=== PATIENT | female | born 1975 | race Caucasian/White ===

== ENCOUNTER → 2016-11-01 | Outpatient (CLI) | payer OTHER ==
[2016-10-09 13:37] VITALS: BP 151/87
[~2016-11-01] MED LIST: ACET-704 PO; AMOX1TAB61 PO; CARV3.122 PO; CYAN10005 PO; DEXA4TAB PO; DULO30CA2 PO; DULO60CA6 PO; GABA-585 PO; GABA-586 PO; HYDR-2762 PO; HYDR40TA PO; LOSA1TAB16 PO; LOSA25TA4 PO; METH-37 PO; METH-38 PO; ONDA8TAB9 PO; OXYC-323 PO; OXYC1TAB7 PO; PREG150C PO; PROG100C7 PO; TIZA4TAB PO; TRAM100T PO
--- NOTE | 2016-11-01 14:52 | RAD ---
Standing lateral extension and flexion views of the lumbar spine Comparison: February 23, 2004. Indications: Low back pain for 2 months. Low back pain radiates to the left leg. Findings: No compression fracture or discitis or osteolytic process is seen. No anterolisthesis is evident. No abnormal movement is seen between flexion and extension. There is moderate degenerative disc space narrowing and mild degenerative endplate spurring at L5-S1 which has progressed from the prior study. There is mild degenerative endplate spurring and disc space narrowing throughout the rest of the lumbar spine with mild progression at L4-5. IMPRESSION: Progressive degenerative disc space disease of L4-5 and L5-S1. No anterolisthesis or abnormal movement is seen between flexion and extension.
== END | disposition home or self-care (01) ==
LOC: RAD 11:46
PROVIDERS: ATTEND Neurological Surgery
DX: M51.36 Other intervertebral disc degeneration, lumbar region (principal)
CPT/HCPCS: 72120

== ENCOUNTER → 2016-12-13 | Outpatient (CLI) | payer OTHER ==
[2016-10-09 13:37] VITALS: BP 151/87
--- NOTE | 2016-12-13 13:09 | KCIC ---
PROCEDURE MRI lumbar spine without contrast HISTORY Midline back pain, fall 3 weeks ago and also 3 days ago, left leg pain, previous surgery July 2016 TECHNIQUE Multiplanar, multi sequential non contrast MR imaging was performed of the lumbar spine. Contrast: None COMPARISON 09/26/2016 FINDINGS Lumbar vertebral body stature is maintained. There is again negligible posterior subluxation L5 relative to S1, L4 relative to L5, L3 relative to L4. There is no new new significant marrow edema. There is again nonspecific edema of the posterior subcutaneous fat of the lower back. There is again anterior annular tear at L4-5, posterior annular tear L5-S1. Conus terminates at L2. There is again mild degenerative disc disease L3-4 to L5-S1. L3-4: Spinal canal and neural foramina are adequate. There is mild facet hypertrophic change. L4-5: Spinal canal and neural foramina remain adequate. There is mild facet hypertrophic change. L5-S1: There is again left laminectomy defect. There is again moderate facet hypertrophic change bilaterally. There is similar signal alteration in the anterior left lateral recess, near descending left S1 nerve root without new significant displacement. There is similar moderate narrowing of the left neural foramen by disc osteophyte complex and facet hypertrophic change, mild narrowing on the right. IMPRESSION 1. Findings are similar compared with the September 2016 exam. There is again some signal alteration of the anterior left lateral recess at L5-S1 at which there has been left laminectomy, on previous post contrast exam mostly due to enhancing fibrosis with tiny residual focus of fluid or disc fragment. There is similar moderate narrowing of the left L5-S1 neural foramen. 2. There is again negligible posterior subluxation L5 relative to S1, L4 relative to L5, L3 relative to L4. 3. There is again mild degenerative disc disease L3-4 to L5-S1. Electronically signed by: Anuj Woodward MD (Dec 13, 2016 13:09:01)
== END | disposition home or self-care (01) ==
LOC: KCIC MRI 11:54
PROVIDERS: ATTEND Neurological Surgery
DX: M51.36 Other intervertebral disc degeneration, lumbar region (principal)
CPT/HCPCS: 72148

== ENCOUNTER 2016-12-19 22:26 | Emergency (ER) | payer OTHER ==
[~2016-12-19] VITALS: Ht 177.8 cm; Wt 119.7 kg
[2016-12-19] MEDS ORDERED: IV NORMAL SALINE 1000ML BAG 1,000 ML IV SCH (23:15)
[2016-12-19] MEDS ORDERED: HALOPERIDOL LACT 5 MG/ML VIAL. IVP ONE (23:15)
[2016-12-19 23:17] LABS: BASO # 0.2 x10^3/uL (0.0-0.2); BASO % 1 % (0-3); EOS % 1 % (0-3); HEMATOCRIT 42.2 % (36.0-47.0); HEMOGLOBIN 13.8 g/dL (12.0-15.5); LYMPH # 2.9 x10^3/uL (1.0-4.8); LYMPH % 13 % (24-48); MEAN CORPUSCULAR HEMOGLOBIN 29 pg (25-35); MEAN CORPUSCULAR HGB CONC 33 g/dL (31-37); MEAN CORPUSCULAR VOLUME 88 fL (79-100); MONO % 6 % (0-9); NEUT % 80 % (31-73); PLATELET COUNT 329 x10^3/uL (140-400); RED BLOOD COUNT 4.79 x10^6/uL (3.50-5.40); RED CELL DISTRIBUTION WIDTH 13.5 % (11.5-14.5); WHITE BLOOD COUNT 22.2 x10^3/uL (4.0-11.0)
[2016-12-19 23:18] LABS: BILIRUBIN,URINE NEGATIVE (NEG); GLUCOSE,URINE NEGATIVE (NEG); NITRITE,URINE NEGATIVE (NEG); PH,URINE 6.5; PROTEIN,URINE NEGATIVE (NEG-TRACE); UROBILINOGEN,URINE 0.2 mg/dL (0.2 mg/dL)
[2016-12-19 23:23] LABS: NEG OBC UR NEG; POS OBC UR POS
[2016-12-19 23:26] LABS: BACTERIA,URINE FEW /HPF (0-FEW); RBC,URINE OCC /HPF (0-2); SQUAMOUS EPITHELIAL CELL,UR MOD /LPF
[2016-12-19 23:28] LABS: CREATININE 0.8 mg/dL (0.6-1.0); GFR 79.4; POTASSIUM 3.8 mmol/L (3.5-5.1)
[2016-12-19 23:34] LABS: ALBUMIN 3.2 g/dL (3.4-5.0); ALBUMIN/GLOBULIN RATIO 0.8 (1.0-1.7); TOTAL BILIRUBIN 0.6 mg/dL (0.2-1.0); TOTAL PROTEIN 7.3 g/dL (6.4-8.2)
[2016-12-19 23:35] LABS: % EOS 2 % (0-5); PLT ESTIMATE ADEQUATE (ADEQUATE)
[2016-12-20 00:07] VITALS: BP 141/83
--- NOTE | 2016-12-20 00:19 | ED.ADGEN ---
Past Medical History Past Medical History: Fibromyalgia, Hypertension, Migraines, Other Additional Past Medical Histor: CYCLIC VOMITING, CHRONIC PAIN, headaches Past Surgical History: Hysterectomy, Tonsillectomy, Tubal ligation Alcohol Use: None Drug Use: Opiates Adult General Chief Complaint Chief Complaint: NAUSEA/VOMITING/DIARRHA HPI HPI Patient is a 41 year old woman, history of cyclic vomiting syndrome, fibromyalgia, hypertension, who presents the emergency department with a complaint of cyclic vomiting. Patient states that she began experiencing persistent episodes of emesis beginning this morning, consistent with her previous episodes. Denies any abdominal pain, any sick contacts or exposures, states she's also sprinting a mild headache which is consistent with previous headaches that she's experienced during these episodes. No injuries, no ingestions, no exposures, no weakness, numbness or tingling. No diarrhea. Last bowel movement was this morning and was normal. Review of Systems Review of Systems Constitutional: Denies fever or chills. [] Eyes: Denies change in visual acuity. [] HENT: Denies nasal congestion or sore throat. [] Respiratory: Denies cough or shortness of breath. [] Cardiovascular: Denies chest pain or edema. [] GI: Denies abdominal pain, complaining of nausea, vomiting, bloody stools or diarrhea. : Denies dysuria. [] Musculoskeletal: Denies back pain or joint pain. [] Integument: Denies rash. [] Neurologic: Denies focal weakness or sensory changes. [] Headache. Endocrine: Denies polyuria or polydipsia. [] Lymphatic: Denies swollen glands. [] Psychiatric: Denies depression or anxiety. [] Current Medications Current Medications Current Medications Medications (Trade) Dose Ordered Sig/Bruno Start Time Stop Time Status Last Admin Dose Admin Haloperidol Lactate (Haldol) 5 mg 1X ONCE 12/19/16 23:15 12/19/16 23:16 DC 12/19/16 23:20 5 MG Sodium Chloride (Iv Sodium Chloride 0.9% 1000ml Bag) 1,000 ml @ 1,000 mls/hr Q1H 12/19/16 23:15 12/20/16 00:14 DC 12/19/16 23:20 1,000 MLS/HR Allergies Allergies Allergies Coded Allergies Type Severity Reaction Last Updated Verified gabapentin Adverse Reaction Intermediate WILD DREAMS 08/07/16 Yes Physical Exam Physical Exam Constitutional: Well developed, well nourished, no acute distress, non-toxic appearance. [] HENT: Normocephalic, atraumatic, bilateral external ears normal, oropharynx moist, no oral exudates, nose normal. [] Eyes: PERRLA, EOMI, conjunctiva normal, no discharge. [] Neck: Normal range of motion, no tenderness, supple, no stridor. [] Cardiovascular:Heart rate regular rhythm, no murmur , S1, S2, no rubs or gallops. [][] Lungs & Thorax: Bilateral breath sounds clear to auscultation, Abdomen: Bowel sounds normal, soft, no tenderness, no masses, no pulsatile masses. No rebound, rigidity or guarding. [] Skin: Warm, dry, no erythema, no rash. [] Back: No tenderness, no CVA tenderness. [] Extremities: No tenderness, no cyanosis, no clubbing, ROM intact, no edema. [] Neurologic: Alert and oriented X 3, normal motor function, normal sensory function, no focal deficits noted. [] Psychologic: Affect normal, judgement normal, mood normal. [] Current Patient Data Vital Signs Vital Signs Date Time Temp Pulse Resp B/P Pulse Ox O2 Delivery O2 Flow Rate FiO2 12/20/16 00:07 72 141/83 94 Room Air 12/19/16 22:35 97.6 20 97.6 Lab Values Laboratory Tests Test 12/19/16 22:35 12/19/16 22:45 Urine Collection Type Unknown Urine Color Yellow Urine Clarity Clear Urine pH 6.5 Urine Specific [place] 1.020 Urine Protein Negativemg/dL (NEG-TRACE) Urine Glucose (UA) Negativemg/dL (NEG) Urine Ketones (Stick) Negativemg/dL (NEG) Urine Blood Negative (NEG) Urine Nitrite Negative (NEG) Urine Bilirubin Negative (NEG) Urine Urobilinogen Dipstick 0.2mg/dL (0.2 mg/dL) Urine Leukocyte Esterase Moderate (NEG) Urine RBC Occ/HPF (0-2) Urine WBC 5-10/HPF (0-4) Urine Squamous Epithelial Cells Mod/LPF Urine Bacteria Few/HPF (0-FEW) Urine Test Negative (NEG) White Blood Count 22.2x10^3/uL (4.0-11.0) H Red Blood Count 4.79x10^6/uL (3.50-5.40) Hemoglobin 13.8g/dL (12.0-15.5) Hematocrit 42.2% (36.0-47.0) Mean Corpuscular Volume 88fL (79-100) Mean Corpuscular Hemoglobin 29pg (25-35) Mean Corpuscular Hemoglobin Concent 33g/dL (31-37) Red Cell Distribution Width 13.5% (11.5-14.5) Platelet Count 329x10^3/uL (140-400) Neutrophils (%) (Auto) 80% (31-73) H Lymphocytes (%) (Auto) 13% (24-48) L Monocytes (%) (Auto) 6% (0-9) Eosinophils (%) (Auto) 1% (0-3) Basophils (%) (Auto) 1% (0-3) Neutrophils # (Auto) 17.7x10^3uL (1.8-7.7) H Lymphocytes # (Auto) 2.9x10^3/uL (1.0-4.8) Monocytes # (Auto) 1.3x10^3/uL (0.0-1.1) H Eosinophils # (Auto) 0.2x10^3/uL (0.0-0.7) Basophils # (Auto) 0.2x10^3/uL (0.0-0.2) Segmented Neutrophils % 77% (35-66) H Band Neutrophils % 4% (0-9) Lymphocytes % 15% (24-48) L Monocytes % 2% (0-10) Eosinophils % 2% (0-5) Platelet Estimate Adequate (ADEQUATE) Sodium Level 139mmol/L (136-145) Potassium Level 3.8mmol/L (3.5-5.1) Chloride Level 102mmol/L (98-107) Carbon Dioxide Level 27mmol/L (21-32) Anion Gap 10 (6-14) Blood Urea Nitrogen 16mg/dL (7-20) Creatinine 0.8mg/dL (0.6-1.0) Estimated GFR (Cockcroft-Gault) 79.4 BUN/Creatinine Ratio 20 (6-20) Glucose Level 133mg/dL (70-99) H Calcium Level 9.0mg/dL (8.5-10.1) Total Bilirubin 0.6mg/dL (0.2-1.0) Aspartate Amino Transferase (AST) 14U/L (15-37) L Alanine Aminotransferase (ALT) 44U/L (14-59) Alkaline Phosphatase 74U/L (46-116) Total Protein 7.3g/dL (6.4-8.2) Albumin 3.2g/dL (3.4-5.0) L Albumin/Globulin Ratio 0.8 (1.0-1.7) L Lipase 113U/L (73-393) Laboratory Tests 12/19/16 22:45 Laboratory Tests 12/19/16 22:45 EKG EKG EC: Sinus rhythm, heart rate 74 bpm, upright axis, QTC of 452, AK 142, QRS of 80, no ST elevations or depressions, no evidence of acute ST abnormalities. [] Radiology/Procedures Radiology/Procedures No indication. [] Course & Med Decision Making Course & Med Decision Making Pertinent Labs and Imaging studies reviewed. (See chart for details) Patient without any pain on examination, vital signs normal limits, received IV fluids, and Haldol after discussion with patient. On reevaluation, she states that her symptoms are resolved she is feeling much better. Noted to have a leukocytosis of 22, with bands, electrolytes and other labs were studies within normal limits. Patient has no fever, no pain, and no other symptoms consistent with infection, I believe that this is a acute phase reaction secondary to multiple episodes of vomiting. I did discuss this leukocytosis with the patient , and she again denies any additional symptoms or concerning findings. She remained symptom-free in the emergency department after receiving a dose of Haldol. Patient does have her Zofran at home, which she'll continue to use as directed, states she is ready to be discharged home, and will return to the ED for concerning symptoms as discussed. Patient discharged home in stable condition with plan as above. Dragon Disclaimer Dragon Disclaimer This electronic medical record was generated, in whole or in part, using a voice recognition dictation system. Departure Impression: Primary Impression: Cyclical vomiting Disposition: HOME, SELF-CARE Condition: IMPROVED SAQIB AVILES DO Dec 20, 2016 00:19
--- NOTE | 2016-12-20 06:20 | EKG ---
[facility] [address] [place] [address] Test Date: 2016-12-19 Test Time: 23:24:17 Pat Name: ELY MARTINEZ Department: Room: Gender: F [employer]: SEAN : 1975 Requested By: SAQIB AVILES Order Number: [id number] Reading MD: Measurements Intervals [place] Rate: 74 P: -30 OR: 142 QRS: 50 QRSD: 80 T: 38 QT: 402 QTc: 452 Interpretive Statements SINUS RHYTHM NORMAL ECG RI6.01 Unconfirmed report No previous ECG available for comparison
== END 2016-12-20 01:11 | disposition home or self-care (01) ==
LOC: ER 22:26
DX: G43.A0 Cyclical vomiting, in migraine, not intractable (principal); G43.909 Migraine, unspecified, not intractable, without status migrainosus; I10 Essential (primary) hypertension; M79.7 Fibromyalgia; G89.29 Other chronic pain; Z90.710 Acquired absence of both cervix and uterus; Z90.89 Acquired absence of other organs; Z98.51 Tubal ligation status; F11.10 Opioid abuse, uncomplicated; Z88.8 Allergy status to other drugs, medicaments and biological substances
CPT/HCPCS: 36415; 80053; 81001; 81025; 83690; 85007; 85027; 93005; 96361; 96374; 99285; J1630; J7030

== ENCOUNTER → 2017-04-10 | Outpatient (CLI) | payer OTHER ==
[~2017-04-10] MED LIST changes: +PROG100C15 PO; -PROG100C7 PO
--- NOTE | 2017-04-10 11:40 | KCIC ---
Ultrasound Pelvis Indication: Pelvic and abdominal bloating and pain Technique: Multiple real-time grayscale images were obtained over the pelvis transabdominal and transvaginal. Color Doppler imaging was utilized. Findings: The uterus is surgically absent. A small cervical nabothian cyst is noted. The right ovary measures 2.2 x 1.7 x 2.4 cm. No abnormal right ovarian lesions are identified. Normal blood flow is identified. The left ovary measures 1.7 x 1.3 x 1.5 cm. No abnormal left ovarian lesions are identified. Normal blood flow is identified No pelvic free fluid is identified. Impression: Status post hysterectomy. Normal appearance of the bilateral ovaries. Electronically signed by: Wes Reina MD (04/10/2017 11:37 AM)
== END | disposition home or self-care (01) ==
LOC: KCIC US 10:42
PROVIDERS: ATTEND Family Medicine
DX: R14.0 Abdominal distension (gaseous) (principal); R10.2 Pelvic and perineal pain; Z90.710 Acquired absence of both cervix and uterus
CPT/HCPCS: 76830; 76856

== ENCOUNTER 2017-08-28 16:12 | Emergency (ER) | payer OTHER ==
[~2017-08-28] VITALS: Ht 177.8 cm; Wt 123.8 kg
[~2017-08-28 16:12] MED LIST changes: -LOSA1TAB16 PO; +LOSA1TAB19 PO
[2017-08-28 16:20] VITALS: BP 180/100
--- NOTE | 2017-08-28 17:06 | RAD ---
Cervical spine, 3 views, 08/28/2017: History: Neck pain radiating to the left shoulder The vertebral heights and intervertebral disc spaces are well-maintained. There is moderate spurring anteriorly in the mid cervical spine, particularly at the C5-6 disc level. No fracture or dislocation is identified. The neural foramina cannot be evaluated in the absence of oblique views. The prevertebral soft tissues are unremarkable. IMPRESSION: 1. Mild degenerative change. 2. No acute bony abnormality is detected.
[2017-08-28] MEDS ORDERED: METH-37 PO (17:28)
[2017-08-28] MEDS ORDERED: ONDA4TAB10 SL (17:28)
[2017-08-28] MEDS ORDERED: DICL50TA4 PO (17:28)
--- NOTE | 2017-08-28 17:29 | PHYS DOC ---
Past Medical History Past Medical History: Fibromyalgia, Hypertension, Migraines, Other Additional Past Medical Histor: CYCLIC VOMITING, CHRONIC PAIN, headaches Past Surgical History: Hysterectomy, Tonsillectomy, Tubal ligation Alcohol Use: None Drug Use: Opiates Adult General Chief Complaint Chief Complaint: Neck Pain HPI HPI Patient is a 41 year old female with history of hypertension, chronic neck and low back pain, chronic headaches from her neck pain, who presents today complaining of moderate posterior neck pain for the last 1 year. Patient state she follows up the neurosurgeon who has tried to order x-rays twice which were denied by her insurance. She states they've also tried to order MRI which were denied. Patient is requesting x-rays of the cervical sprain. Patient denies any injury. Denies anything exacerbating her pain or relieving the pain. Patient states the pain is sharp and constant. Review of Systems Review of Systems Constitutional: Denies fever or chills [] Musculoskeletal: neck pain-chronic Integument: Denies rash or skin lesions [] Neurologic: Denies headache, focal weakness or sensory changes [] All other systems were reviewed and found to be within normal limits, except as documented in this note. Allergies Allergies Allergies Coded Allergies Type Severity Reaction Last Updated Verified gabapentin Adverse Reaction Intermediate WILD DREAMS 08/07/16 Yes Physical Exam Physical Exam Constitutional: Well developed, well nourished, no acute distress, non-toxic appearance. [] Skin: Warm, dry, no erythema, no rash. [] Back: No tenderness, no CVA tenderness. [] Extremities: Cervical spine with no obvious deformity. Diffuse paraspinal muscle tenderness to posterior cervical spine, slight midline cervical spine tenderness the patient states this is chronic for 1 year. Full range of motion to the cervical spine. Neurologic: Alert and oriented X 3, normal motor function, normal sensory function, no focal deficits noted. [] Psychologic: Affect normal, judgement normal, mood normal. [] Current Patient Data Vital Signs Vital Signs Date Time Temp Pulse Resp B/P (MAP) Pulse Ox O2 Delivery O2 Flow Rate FiO2 08/28/17 16:20 98.1 64 16 180/100 (126) 100 Room Air 98.1 EKG EKG [] Radiology/Procedures Radiology/Procedures [] Course & Med Decision Making Course & Med Decision Making Pertinent Labs and Imaging studies reviewed. (See chart for details) Patient is in the ED with chronic neck pain for 1 year. She is requesting x- rays of her cervical spine because her insurance will not pay for the x-rays as an outpatient. Cervical spine x-rays interpreted by radiologist were negative for any acute findings but noted for arthritis. Patient was discharged with diclofenac Robaxin and Zofran for her chronic nausea and vomiting. She is to follow-up with her neurosurgeon Dr. Peter as soon as possible. Dragon Disclaimer Dragon Disclaimer This electronic medical record was generated, in whole or in part, using a voice recognition dictation system. Departure Departure Impression: Primary Impression: Chronic neck pain Additional Impression: DJD (degenerative joint disease), cervical Disposition: HOME, SELF-CARE Condition: STABLE Referrals: KATHY SAPP MD (PCP) DELROY PETER MD follow up in one week Patient Instructions: Arthritis, Degenerative-Brief Additional Instructions: You were seen for chronic neck pain. Your neck x-ray was negative for any acute findings but noted for arthritis in your neck. Follow-up with as soon as possible. Scripts Methocarbamol (ROBAXIN) 500 Mg Tablet 1 TAB PO TID, #30 TAB Prov: STACEY NETTLES APRN 08/28/17 Ondansetron (ZOFRAN ODT) 4 Mg Tab.rapdis 1 TAB SL Q8HRS, #15 TAB Prov: STACEY NETTLES APRN 08/28/17 Diclofenac Sodium (DICLOFENAC SODIUM) 50 Mg Tablet. 1 TAB PO BID, #30 TAB 0 Refills Prov: STACEY NETTLES APRN 08/28/17 Problem Qualifiers STACEY NETTLES APRN Aug 28, 2017 17:28
== END 2017-08-28 17:34 | disposition home or self-care (01) ==
LOC: ER 16:12
DX: M47.812 Spondylosis without myelopathy or radiculopathy, cervical region (principal); G89.29 Other chronic pain; M54.5 Low back pain; R51 Headache; I10 Essential (primary) hypertension; M79.7 Fibromyalgia; G43.909 Migraine, unspecified, not intractable, without status migrainosus; Z88.8 Allergy status to other drugs, medicaments and biological substances
CPT/HCPCS: 72040; 99284

== ENCOUNTER 2018-08-03 11:36 | Emergency (ER) | payer OTHER ==
[~2018-08-03] VITALS: Ht 177.8 cm; Wt 108.9 kg
[~2018-08-03 11:36] MED LIST changes: +DICL50TA4 PO; -LOSA25TA4 PO; +LOSA25TA5 PO; +ONDA4TAB10 SL; -TRAM100T PO; +TRAM100T30 PO
[2018-08-03] MEDS ORDERED: IV RINGERS,LACTATED 1000ML 1,000 ML IV SCH (12:00)
--- NOTE | 2018-08-03 12:04 | EKG ---
[facility] [address] [place] [address] Test Date: 2018-08-03 Test Time: 11:43:19 Pat Name: ELY MARTINEZ Department: Room: Gender: F [employer]: : 1975 Requested By: PARVEEN PARKS Order Number: [id number] Reading MD: Lupillo Dominguez MD Measurements Intervals [place] Rate: 54 P: -18 MN: 140 QRS: 52 QRSD: 84 T: 48 QT: 438 QTc: 421 Interpretive Statements SINUS RHYTHM Electronically Signed On 08-04-2018 12:24:07 CDT by Lupillo Dominguez MD
--- NOTE | 2018-08-03 12:12 | PHYS DOC ---
Past Medical History Past Medical History: Fibromyalgia, Hypertension, Migraines, Other Additional Past Medical Histor: CYCLIC VOMITING, CHRONIC PAIN, headaches Past Surgical History: Hysterectomy, Tonsillectomy, Tubal ligation Smoking: Cigarettes Alcohol Use: None Drug Use: Opiates Adult General Chief Complaint Chief Complaint: CHEST PAIN HPI HPI Patient is a 42-year-old female who presents to the emergency department for evaluation. She states that she was awaken this morning at about 8 AM with some anterior chest discomfort. She describes the discomfort as an achiness in the center of her chest. The discomfort has been constant. It is not associated with any shortness of breath, or diaphoresis. The patient states she had several episodes of vomiting this morning, but attributed this to her cyclic vomiting syndrome. (She denies marijuana use). She has not had any pleuritic chest pain. She denies current abdominal pain. She has not had any bloody emesis or bloody stools. Exertion does not seem to affect her chest pain. Palpation of her anterior chest wall does seem to worsen her pain. Other than the stated above, there are no alleviating or exacerbating factors to her symptoms. Review of Systems Review of Systems Constitutional: Denies fever or chills [] Eyes: Denies change in visual acuity, redness, or eye pain [] HENT: Denies nasal congestion or sore throat [] Respiratory: Denies cough or shortness of breath [] Cardiovascular: No additional information not addressed in HPI [] GI: Denies abdominal pain, bloody stools or diarrhea [] : Denies dysuria or hematuria [] Musculoskeletal: Denies back pain or joint pain [] Integument: Denies rash or skin lesions [] Neurologic: Denies headache, focal weakness or sensory changes [] Endocrine: Denies polyuria or polydipsia [] All other systems were reviewed and found to be within normal limits, except as documented in this note. Current Medications Current Medications Current Medications Medications (Trade) Dose Ordered Sig/Bruno Start Time Stop Time Status Last Admin Dose Admin Aspirin (Children'S Aspirin) 324 mg 1X ONCE 08/03/18 12:15 08/03/18 12:16 DC 08/03/18 12:14 324 MG Ketorolac Tromethamine (Toradol 30mg Vial) 30 mg 1X ONCE 08/03/18 13:30 08/03/18 13:31 Ondansetron HCl (Zofran) 4 mg 1X ONCE 08/03/18 12:45 08/03/18 12:46 DC 08/03/18 12:43 4 MG Ringer's Solution 1,000 ml @ 100 mls/hr Q10H 08/03/18 12:00 08/03/18 21:59 08/03/18 12:16 100 MLS/HR Allergies Allergies Allergies Coded Allergies Type Severity Reaction Last Updated Verified No Known Medication Allergies Allergy Unknown 08/03/18 Yes gabapentin Adverse Reaction Intermediate WILD DREAMS 08/07/16 Yes Physical Exam Physical Exam PHYSICAL EXAM: CONSTITUTIONAL: Well developed, well nourished HEAD: normocephalic, atraumatic EENT: PERRL, EOMI. Conjunctivae normal color, sclerae non-icteric; moist mucous membranes. NECK: Supple, non-tender; no meningismus. LUNGS: Lungs CTA, breathing even and unlabored. Normal air movement. HEART: Regular rate and rhythm, no murmur CHEST: No deformity; Palpation of the anterior chest wall reproduces the patient 's pain. ABDOMEN: The abdomen is soft, an palpation of the anterior chest wall reproduces the patient's pain.d non-tender, no masses or bruits. EXTREM: Normal ROM; no deformity, no calf tenderness. Normal pulses palpable in all extremities. There is no pedal edema. SKIN: No rash; no diaphoresis NEURO: Alert; normal speech and cognition; CN's grossly intact; strength grossly intact without focal deficit. BACK: No CVA TTP. Current Patient Data Vital Signs Vital Signs Date Time Temp Pulse Resp B/P (MAP) Pulse Ox O2 Delivery O2 Flow Rate FiO2 08/03/18 11:45 97.9 60 13 199/112 (141) 97 Room Air 97.9 Lab Values Laboratory Tests Test 08/03/18 12:00 White Blood Count 15.9 x10^3/uL (4.0-11.0) H Red Blood Count 5.24 x10^6/uL (3.50-5.40) Hemoglobin 15.7 g/dL (12.0-15.5) H Hematocrit 45.2 % (36.0-47.0) Mean Corpuscular Volume 86 fL (79-100) Mean Corpuscular Hemoglobin 30 pg (25-35) Mean Corpuscular Hemoglobin Concent 35 g/dL (31-37) Red Cell Distribution Width 13.1 % (11.5-14.5) Platelet Count 277 x10^3/uL (140-400) Neutrophils (%) (Auto) 81 % (31-73) H Lymphocytes (%) (Auto) 12 % (24-48) L Monocytes (%) (Auto) 4 % (0-9) Eosinophils (%) (Auto) 1 % (0-3) Basophils (%) (Auto) 1 % (0-3) Neutrophils # (Auto) 12.8 x10^3uL (1.8-7.7) H Lymphocytes # (Auto) 2.0 x10^3/uL (1.0-4.8) Monocytes # (Auto) 0.7 x10^3/uL (0.0-1.1) Eosinophils # (Auto) 0.2 x10^3/uL (0.0-0.7) Basophils # (Auto) 0.2 x10^3/uL (0.0-0.2) Platelet Estimate Pending Sodium Level 139 mmol/L (136-145) Potassium Level 3.7 mmol/L (3.5-5.1) Chloride Level 100 mmol/L (98-107) Carbon Dioxide Level 28 mmol/L (21-32) Anion Gap 11 (6-14) Blood Urea Nitrogen 4 mg/dL (7-20) L Creatinine 0.8 mg/dL (0.6-1.0) Estimated GFR (Cockcroft-Gault) 79.0 BUN/Creatinine Ratio 5 (6-20) L Glucose Level 125 mg/dL (70-99) H Calcium Level 8.9 mg/dL (8.5-10.1) Magnesium Level 1.9 mg/dL (1.8-2.4) Total Bilirubin 0.7 mg/dL (0.2-1.0) Aspartate Amino Transferase (AST) 5 U/L (15-37) L Alanine Aminotransferase (ALT) 18 U/L (14-59) Alkaline Phosphatase 89 U/L (46-116) Creatine Kinase 36 U/L (26-192) Creatine Kinase MB (Mass) < 0.5 ng/mL (0.0-3.6) Creatine Kinase MB Relative Index % (0-4) Troponin I Quantitative < 0.017 ng/mL (0.000-0.055) GU-Yrs-O-Type Natriuretic Peptide 113 pg/mL (0-124) Total Protein 7.3 g/dL (6.4-8.2) Albumin 3.4 g/dL (3.4-5.0) Albumin/Globulin Ratio 0.9 (1.0-1.7) L Lipase 67 U/L (73-393) L Laboratory Tests 08/03/18 12:00 Laboratory Tests 08/03/18 12:00 EKG EKG [Normal sinus rhythm with a normal rate, normal axis, normal intervals, there are no acute ischemic ST/T changes.] Repeat EKG at 1:03 PM: Normal sinus rhythm with a normal rate, normal axis, normal intervals, there are no acute ischemic ST/T changes. Radiology/Procedures Radiology/Procedures [PROCEDURE: PORTABLE CHEST 1V AP portable chest 08/03/2018. Reason for exam: Chest pain and pressure. No infiltrate or effusion is seen. Heart size and pulmonary vascularity appear normal. IMPRESSION: No acute disease. ] Course & Med Decision Making Course & Med Decision Making Pertinent Labs and Imaging studies reviewed. (See chart for details) [1:10 PM: The patient's condition remained stable. She stratifies low on a risk stratification HEART score for cardiac chest pain, her only points come from risk factors of smoking, obesity, and hypertension by history. Her chest pain is very atypical for cardiac chest pain and is suggestive of musculoskeletal chest pain. A repeat troponin is pending, and if negative, the patient is safe to be discharged for further outpatient evaluation. I discussed return precautions in detail with the patient. The patient and I did have a discussion about the limitations of ED cardiac evaluation in definitively ruling out acute coronary syndrome, but given the patient's low clinical suspicion for coronary syndrome and low risk factors, joint decision making was used to arrive at the conclusion of outpatient evaluation is appropriate for the patient.] Dragon Disclaimer Dragon Disclaimer This electronic medical record was generated, in whole or in part, using a voice recognition dictation system. Departure Departure Impression: Primary Impression: Musculoskeletal chest pain Disposition: HOME, SELF-CARE Condition: STABLE Referrals: KATHY SAPP MD (PCP) DRAGAN JUDGE MD Patient Instructions: Chest Pain (Nonspecific), Chest Wall Pain, Musculoskeletal Pain Additional Instructions: Ibuprofen 400-600 mg every 6 hours may help improve your symptoms. Applying a heating pad to the affected area may help improve your symptoms. PARVEEN PARKS MD Aug 03, 2018 12:12
[2018-08-03] MEDS ORDERED: ASPIRIN CHEWABLE 81 MG TABLET. PO ONE (12:15)
[2018-08-03 12:16] LABS: BASO # 0.2 x10^3/uL (0.0-0.2); BASO % 1 % (0-3); EOS # 0.2 x10^3/uL (0.0-0.7); EOS % 1 % (0-3); HEMATOCRIT 45.2 % (36.0-47.0); HEMOGLOBIN 15.7 g/dL (12.0-15.5); LYMPH % 12 % (24-48); MEAN CORPUSCULAR HEMOGLOBIN 30 pg (25-35); MEAN CORPUSCULAR HGB CONC 35 g/dL (31-37); MEAN CORPUSCULAR VOLUME 86 fL (79-100); MONO # 0.7 x10^3/uL (0.0-1.1); MONO % 4 % (0-9); NEUT # 12.8 x10^3uL (1.8-7.7); NEUT % 81 % (31-73); PLATELET COUNT 277 x10^3/uL (140-400); RED BLOOD COUNT 5.24 x10^6/uL (3.50-5.40); RED CELL DISTRIBUTION WIDTH 13.1 % (11.5-14.5); WHITE BLOOD COUNT 15.9 x10^3/uL (4.0-11.0)
[2018-08-03 12:34] LABS: CALCIUM 8.9 mg/dL (8.5-10.1); CREATININE 0.8 mg/dL (0.6-1.0); POTASSIUM 3.7 mmol/L (3.5-5.1)
[2018-08-03 12:40] LABS: ALBUMIN 3.4 g/dL (3.4-5.0); ALBUMIN/GLOBULIN RATIO 0.9 (1.0-1.7); MAGNESIUM 1.9 mg/dL (1.8-2.4); TOTAL BILIRUBIN 0.7 mg/dL (0.2-1.0); TOTAL PROTEIN 7.3 g/dL (6.4-8.2)
--- NOTE | 2018-08-03 12:42 | RAD ---
AP portable chest 08/03/2018. Reason for exam: Chest pain and pressure. No infiltrate or effusion is seen. Heart size and pulmonary vascularity appear normal. IMPRESSION: No acute disease. Electronically signed by: Curtis Kirk Jr., MD (08/03/2018 12:38 PM) [facility] [place]
[2018-08-03] MEDS ORDERED: ONDANSETRON PF 4 MG/2 ML VIAL. IV ONE (12:45)
[2018-08-03 12:54] LABS: CREATINE KINASE 36 U/L (26-192)
[2018-08-03 13:00] VITALS: BP 167/98
--- NOTE | 2018-08-03 13:10 | EKG ---
[facility] [address] [place] [address] Test Date: 2018-08-03 Test Time: 13:03:39 Pat Name: ELY MARTINEZ Department: Room: Gender: F It Infrastructure Engineer: : [id number] Requested By: PARVEEN PARKS Order Number: [id number] Reading MD: Lupillo Dominguez MD Measurements Intervals Ransom Rate: 53 P: 24 OR: 146 QRS: 39 QRSD: 86 T: 49 QT: 468 QTc: 442 Interpretive Statements SINUS RHYTHM Electronically Signed On 08-04-2018 12:26:13 CDT by Lupillo Dominguez MD
[2018-08-03 13:30] LABS: % BANDS 2 % (0-9); % LYMPHS 11 % (24-48); % MONOS 3 % (0-10); % SEGS 84 % (35-66); PLT ESTIMATE ADEQUATE (ADEQUATE)
[2018-08-03] MEDS ORDERED: KETOROLAC 30 MG/ML VIAL. IV ONE (13:30)
== END 2018-08-03 13:43 | disposition home or self-care (01) ==
LOC: ER 11:36
DX: R07.89 Other chest pain (principal); G43.A0 Cyclical vomiting, in migraine, not intractable; R00.2 Palpitations; I10 Essential (primary) hypertension; G43.909 Migraine, unspecified, not intractable, without status migrainosus; G89.29 Other chronic pain; Z90.710 Acquired absence of both cervix and uterus; Z98.51 Tubal ligation status; F17.200 Nicotine dependence, unspecified, uncomplicated; Z88.8 Allergy status to other drugs, medicaments and biological substances
CPT/HCPCS: 36415; 71045; 80053; 82553; 83690; 83735; 83880; 84484; 85007; 85025; 93005; 96361; 96374; 96375; 99285; J1885; J2405; J7120

== ENCOUNTER → 2018-10-21 | Outpatient (CLI) | payer OTHER ==
[~2018-10-21] MED LIST changes: +CARV3.1210 PO; -CARV3.122 PO; -GABA-586 PO; +GABA300C18 PO; -HYDR-2762 PO; +HYDR-2765 PO; -LOSA25TA5 PO; +LOSA25TA54 PO; -OXYC-323 PO; +OXYC1TAB15 PO
--- NOTE | 2018-10-21 10:17 | KCIC ---
Bilateral diagnostic digital mammograms: Reason for examination: Left breast lump. Baseline exam. Interpretation was made with the benefit of CAD. The skin and nipples show no abnormalities. No abnormal axillary lymph nodes are seen. The breast parenchyma shows scattered fibroglandular density. (Breast density: Category B.) There is a small nodule in the upper inner quadrant approximately 4 cm from the nipple. In the area of clinical concern inferiorly, there is no focal abnormality evident. There are no other dominant masses, suspicious calcifications or architectural distortions. Some benign calcifications are present. Impression: Small nodule at approximately the 10:00 position 4 cm from the nipple. No focal abnormality in the area of clinical concern. Ultrasound to follow. BI-RADS category 0: Incomplete. Needs additional imaging evaluation. Left breast ultrasound: Left breast ultrasound was performed in the area of clinical concern, in the area of mammographic concern and at the left axilla. In the 8:00 position 9 cm from the nipple line in the area of clinical concern, but there is no discrete cystic or solid nodules or architectural distortion evident. In the 10:00 position 4 cm from the nipple and corresponding to the area of mammographic concern, there is a small 8.5 x 7 mm fibrocystic type lesion in parallel orientation. No other cystic or solid lesions are seen. No abnormal appearing lymph nodes are seen in the left axilla. IMPRESSION: No abnormality seen at the 8:00 position in the area of clinical concern. 8.5 x 7 mm fibrocystic type lesion at the 10:00 position corresponding to the area of mammographic concern. Recommend 6 month sonographic follow-up. BI-RADS Category 3: Probably Benign. "Our facility is accredited by the [employer] Mammography Program." This patient's information has been entered into a reminder system for the patient to be notified with the results of her examination and a target date for the next mammogram. Electronically signed by: Heidi Johns MD (10/21/2018 10:13 AM) [id number]
== END | disposition home or self-care (01) ==
LOC: KCIC MAMMO 09:00
PROVIDERS: ATTEND Family Medicine
DX: N63.22 Unspecified lump in the left breast, upper inner quadrant (principal)
CPT/HCPCS: 76641; 77066

== ENCOUNTER → 2018-12-12 | Outpatient (CLI) | payer OTHER ==
--- NOTE | 2018-12-12 16:55 | KCIC ---
MRI of the cervical spine without contrast 12/12/2018 CLINICAL HISTORY: Neck pain with left arm pain for one year. TECHNIQUE: Unenhanced T1-weighted, T2-weighted and inversion recovery sagittal and gradient echo and T2-weighted axial images of the cervical spine were obtained. FINDINGS: Comparison is made to radiographs of the cervical spine dated 08/28/2017. Mild lateral curvature of the cervical spine is seen convex to the right. There is straightening of the normal cervical lordosis. Degenerative signal changes are seen involving all of the disks of the cervical spine. Degenerative signal changes are seen within the marrow surrounding these discs. No area of abnormal signal intensity is seen involving the cervical spinal cord. At the C2-3, C3-4 and C4-5 disc spaces there are minimal generalized disc bulges. Degenerative changes are seen involving the uncovertebral and facet joints bilaterally. These findings do not result in significant central spinal canal or neural foraminal stenosis. At the C5-6 disc space there is a mild to moderate generalized disc bulge. This is eccentric to the left. Degenerative changes are seen involving the uncovertebral and facet joints, left greater than right. These findings when combined do not result in significant central spinal canal stenosis. Mild bilateral neural foraminal stenosis is seen. At the C6-7 disc space there is a mild to moderate generalized disc bulge. Superimposed on this disc bulge is a right paracentral focal disc protrusion. This measures 4 mm in AP diameter. Degenerative changes are seen involving the uncovertebral and facet joints bilaterally. These findings when combined efface the anterior CSF and results in mild right greater than left central spinal canal stenosis without evidence of cord impingement. Mild bilateral neural foraminal stenosis is seen. At the C7-T1 disc space there is a minimal generalized disc bulge. Degenerative changes are seen involving the facet joints bilaterally. These findings do not result in significant central spinal canal or neural foraminal stenosis. IMPRESSION: Degenerative changes are seen throughout the cervical spine. These findings result in mild right greater than left central spinal canal stenosis at C6-7 without evidence of cord impingement. Mild bilateral neural foraminal stenosis is seen at C5-6 and C6-7. Electronically signed by: Andrea Cintron MD (12/12/2018 4:52 PM) [id number]
== END | disposition home or self-care (01) ==
LOC: KCIC MRI 08:35
PROVIDERS: ATTEND Family Medicine
DX: M47.22 Other spondylosis with radiculopathy, cervical region (principal); M48.02 Spinal stenosis, cervical region; M50.223 Other cervical disc displacement at C6-C7 level
CPT/HCPCS: 72141